=== PATIENT | male | born 1945 | race African-American/Black ===

== ENCOUNTER 2016-09-22 18:12 | Emergency (ER) | payer BC ==
[~2016-09-22] VITALS: Ht 175.3 cm; Wt 75.0 kg
[2016-09-22 19:49] LABS: PROTHROMBIN TIME 10.8 sec
[2016-09-22 19:50] LABS: BASOPHILS % 2.4 % (0.0-2.0); EOSINOPHILS % 6.6 % (0.0-5.0); HEMATOCRIT. 37.5 % (42.0-52.0); HEMOGLOBIN. 12.5 g/dL (14.0-18.0); LYMPHOCYTES % 17.3 % (20.0-50.0); MEAN CORPUSCULAR HEMOGLOBIN 30.7 pg (28.0-32.0); MEAN CORPUSCULAR VOLUME 92.1 fL (80.0-94.0); MEAN PLATELET VOLUME 10.7 fl (7.4-10.4); MONOCYTES % 10.1 % (2.0-8.0); NEUTROPHILS % 63.6 % (40.0-76.0); PLATELET 131 x1000/uL (130-400); RED BLOOD CELL COUNT 4.08 mill/uL (4.7-6.1); RED CELL DISTRIBUTION WIDTH 13.1 % (11.6-14.6)
[2016-09-22 20:00] LABS: CHLORIDE 108 mEq/L (98-107)
[2016-09-22 20:03] LABS: CARBON DIOXIDE 27 mEq/L (21-32)
[2016-09-22 20:10] LABS: TROPONIN I 0.17 ng/mL (0.00-0.04)
[2016-09-22] MEDS ORDERED: CLONIDINE 0.1MG TABLET PO ONE (20:15)
[2016-09-22 20:33] LABS: CLARITY URINE CLEAR (CLEAR); COLOR URINE YELLOW (YELLOW); GLUCOSE URINE NEGATIVE (NEGATIVE); KETONES URINE NEGATIVE (NEGATIVE); LEUKOCYTE ESTERASE URINE NEGATIVE (NEGATIVE); NITRITE URINE NEGATIVE (NEGATIVE); OCCULT BLOOD URINE 3+ (NEGATIVE); PROTEIN URINE TRACE (NEGATIVE); SPECIFIC GRAVITY URINE 1.007 (1.005-1.030); UROBILINOGEN URINE 0.2 E.U./dL (0.2-1.0)
[2016-09-22 22:30] VITALS: BP 151/94
== END 2016-09-22 22:55 | disposition home or self-care (01) ==
LOC: ER 18:12
DX: N30.91 Cystitis, unspecified with hematuria (principal); I10 Essential (primary) hypertension; N40.0 Benign prostatic hyperplasia without lower urinary tract symptoms; N28.9 Disorder of kidney and ureter, unspecified; Z87.891 Personal history of nicotine dependence
CPT/HCPCS: 36415; 74176; 80053; 81001; 83690; 84484; 85025; 85610; 87086; 99285

== ENCOUNTER 2018-07-29 11:37 | Emergency (ER) | payer BC ==
[~2018-07-29] VITALS: Ht 175.3 cm; Wt 80.0 kg
[2018-07-29] MEDS ORDERED: B12/1TAB MT (12:36)
[2018-07-29] MEDS ORDERED: LOSA50TA41 MT (12:40)
[2018-07-29] MEDS ORDERED: AMLO2.5T45 PO (12:40)
[2018-07-29] MEDS ORDERED: LABE200T28 MT (12:41)
[2018-07-29 13:03] LABS: BASOPHILS % 0.3 % (0.0-2.0); EOSINOPHILS % 5.3 % (0.0-5.0); HEMATOCRIT. 43.1 % (42.0-52.0); HEMOGLOBIN. 14.6 g/dL (14.0-18.0); KETONES URINE NEGATIVE (NEGATIVE); LEUKOCYTE ESTERASE URINE 1+ (NEGATIVE); LYMPHOCYTES % 15.2 % (20.0-50.0); MEAN CORPUSCULAR HEMOGLOBIN 31.9 pg (28.0-32.0); MEAN CORPUSCULAR VOLUME 94.3 fL (80.0-94.0); MEAN PLATELET VOLUME 9.8 fl (7.4-10.4); MONOCYTES % 6.7 % (2.0-8.0); NEUTROPHILS % 72.5 % (40.0-76.0); NITRITE URINE NEGATIVE (NEGATIVE); OCCULT BLOOD URINE 3+ (NEGATIVE); PH URINE 6.5 (4.5-8.0); PLATELET 183 x1000/uL (130-400); PROTEIN URINE 3+ (NEGATIVE); RED BLOOD CELL COUNT 4.57 mill/uL (4.7-6.1); RED CELL DISTRIBUTION WIDTH 12.9 % (11.6-14.6); SPECIFIC GRAVITY URINE 1.009 (1.005-1.030); UROBILINOGEN URINE 0.2 E.U./dL (0.2-1.0)
[2018-07-29 13:04] LABS: CLARITY URINE CLOUDY (CLEAR); COLOR URINE BLOODY (YELLOW)
[2018-07-29 13:13] LABS: PARTIAL THROMBOPLASTIN TIME 24.3 sec (23.4-31.0); PROTHROMBIN TIME 10.3 sec (9.6-11.0)
[2018-07-29] MEDS ORDERED: CLONIDINE 0.2MG TABLET PO ONE (14:45)
[2018-07-29] MEDS ORDERED: FUROSEMIDE 20MG/2ML VIAL IVP ONE (14:45)
[2018-07-29] MEDS ORDERED: SODIUM CHLORIDE 0.9% 1,000 ML IV ONE (14:45)
[2018-07-29 18:10] VITALS: BP 115/77
== END 2018-07-29 18:26 | disposition home or self-care (01) ==
LOC: ER 13:18
DX: R31.0 Gross hematuria (principal); I10 Essential (primary) hypertension; N28.9 Disorder of kidney and ureter, unspecified; Z87.442 Personal history of urinary calculi; Z85.9 Personal history of malignant neoplasm, unspecified; Z79.899 Other long term (current) drug therapy
CPT/HCPCS: 36415; 80048; 81003; 85025; 85610; 85730; 93005; 96361; 96374; 99283; J1940; J7030

== ENCOUNTER 2019-02-27 18:05 | Emergency (ER) | payer BC ==
[~2019-02-27] VITALS: Ht 175.3 cm; Wt 61.2 kg
[~2019-02-27 18:05] MED LIST: AMLO2.5T45 PO; B12/1TAB MT; LABE200T28 MT; LOSA50TA41 MT
[2019-02-27 18:12] VITALS: BP 184/106
== END 2019-02-27 19:46 | disposition left against medical advice (07) ==
LOC: ER 18:05
DX: R10.9 Unspecified abdominal pain (principal); R31.9 Hematuria, unspecified; I10 Essential (primary) hypertension; Z53.21 Procedure and treatment not carried out due to patient leaving prior to being seen by health care provider

== ENCOUNTER 2019-02-28 05:49 | Emergency (ER) | payer BC ==
[~2019-02-28] VITALS: Ht 175.3 cm; Wt 62.0 kg
[2019-02-28 08:02] LABS: CLARITY URINE CLEAR (CLEAR); COLOR URINE YELLOW (YELLOW); KETONES URINE NEGATIVE (NEGATIVE); LEUKOCYTE ESTERASE URINE NEGATIVE (NEGATIVE); NITRITE URINE NEGATIVE (NEGATIVE); OCCULT BLOOD URINE 1+ (NEGATIVE); PH URINE 6.5 (4.5-8.0); PROTEIN URINE 1+ (NEGATIVE); SPECIFIC GRAVITY URINE 1.008 (1.005-1.030); UROBILINOGEN URINE 0.2 E.U./dL (0.2-1.0)
[2019-02-28] MEDS ORDERED: ONDANSETRON HCL 4MG/2ML INJ IV STA (08:16)
[2019-02-28] MEDS ORDERED: SODIUM CHLORIDE 0.9% 1,000 ML IV ONE (08:16)
[2019-02-28] MEDS ORDERED: HYDROCODONE/ACETAMINOPHEN 5/325MG TABLET PO ONE (08:30)
[2019-02-28] MEDS ORDERED: HYDRALAZINE HCL 10MG TABLET PO ONE (08:30)
[2019-02-28 08:50] LABS: HEMATOCRIT. 38.5 % (42.0-52.0); MEAN CORPUSCULAR HEMOGLOBIN 31.6 pg (28.0-32.0); MEAN CORPUSCULAR VOLUME 93.3 fL (80.0-94.0); MEAN PLATELET VOLUME 10.5 fl (7.4-10.4); PLATELET 169 x1000/uL (130-400); RED BLOOD CELL COUNT 4.12 mill/uL (4.7-6.1); RED CELL DISTRIBUTION WIDTH 12.6 % (11.6-14.6)
[2019-02-28 08:53] LABS: CHLORIDE 105 mEq/L (98-107)
[2019-02-28 08:55] LABS: PROTHROMBIN TIME 10.3 sec (9.6-11.0)
[2019-02-28 10:16] LABS: PLATELET ESTIMATE NORMAL
[2019-02-28 10:53] VITALS: BP 149/85
== END 2019-02-28 10:55 | disposition home or self-care (01) ==
LOC: ER 05:49
DX: N20.0 Calculus of kidney (principal); R31.0 Gross hematuria; I12.9 Hypertensive chronic kidney disease with stage 1 through stage 4 chronic kidney disease, or unspecified chronic kidney disease; N18.9 Chronic kidney disease, unspecified
CPT/HCPCS: 36415; 74176; 80053; 81003; 85025; 85610; 96374; 99284; J2405; J7030

== ENCOUNTER 2019-10-02 09:20 | Inpatient (IN) | payer BC ==
[~2019-10-02] VITALS: Ht 175.3 cm; Wt 49.2 kg
[2019-10-02] MEDS ORDERED: SODIUM CHLORIDE 0.9% 1,000 ML IV ONE (10:06)
[2019-10-02] MEDS ORDERED: KETOROLAC 15MG/ML VIAL IV ONE (10:15)
[2019-10-02 10:40] LABS: HEMATOCRIT. 33.4 % (42.0-52.0); MEAN CORPUSCULAR HEMOGLOBIN 28.6 pg (28.0-32.0); MEAN CORPUSCULAR VOLUME 86.9 fL (80.0-94.0); MEAN PLATELET VOLUME 7.9 fl (7.4-10.4); PLATELET 444 x1000/uL (130-400); RED BLOOD CELL COUNT 3.84 mill/uL (4.7-6.1)
[2019-10-02 10:42] LABS: CHLORIDE 103 mEq/L (98-107)
[2019-10-02 11:45] LABS: PLATELET ESTIMATE SLIGHTLY INCREASED
[2019-10-02] MEDS ORDERED: ASPIRIN 81MG TABLET PO ONE (12:00)
[2019-10-02] MEDS ORDERED: CLONIDINE 0.2MG TABLET PO ONE (12:45)
[2019-10-02 12:48] LABS: CLARITY URINE CLOUDY (CLEAR); COLOR URINE YELLOW (YELLOW); KETONES URINE NEGATIVE (NEGATIVE); LEUKOCYTE ESTERASE URINE 3+ (NEGATIVE); NITRITE URINE NEGATIVE (NEGATIVE); OCCULT BLOOD URINE 3+ (NEGATIVE); PH URINE 5.5 (4.5-8.0); PROTEIN URINE 2+ (NEGATIVE); SPECIFIC GRAVITY URINE 1.013 (1.005-1.030); UROBILINOGEN URINE 0.2 E.U./dL (0.2-1.0)
[2019-10-02] MEDS ORDERED: HYDRALAZINE 20MG/ML VIAL IV NR (14:00)
[2019-10-02] MEDS ORDERED: CEFTRIAXONE 1 G PREMIX 50 ML IV SCH (16:15)
[2019-10-02] MEDS: HYDRALAZINE 20MG/ML VIAL IV PRN (16:23)
[2019-10-02 16:56] LABS: CREATINE KINASE MB FRACTION 3.7 ng/mL (0.5-3.6)
[2019-10-03] VITALS: BP 143/88
[2019-10-03] MEDS ORDERED: DOXA4TAB3 PO (01:22)
[2019-10-03] MEDS ORDERED: CLON1PAT11 SUBCUT (01:22)
[2019-10-03] MEDS ORDERED: MIRT7.5T11 PO (01:22)
[2019-10-03] MEDS ORDERED: DOXY100T2 PO (01:22)
[2019-10-03] MEDS ORDERED: AMLO5TAB88 PO (01:22)
[2019-10-03 04:00] VITALS: BP 140/89
[2019-10-03 08:00] VITALS: BP 150/96
[2019-10-03] MEDS: HYDROCODONE/ACETAMINOPHEN 5/325MG TABLET PO PRN ×2 (10:39→20:32)
[2019-10-03] MEDS ORDERED: IPRATROPIUM/ALBUTEROL 0.5-3(2.5)MG/3ML NEB HHN PRN (11:45)
[2019-10-03] MEDS ORDERED: BISACODYL 10MG SUPP PR PRN (11:45)
[2019-10-03] MEDS ORDERED: LORAZEPAM 2MG/ML CPJ IV PRN (11:45)
[2019-10-03] MEDS ORDERED: ACETAMINOPHEN 325MG TABLET PO PRN (11:45)
[2019-10-03] MEDS ORDERED: DIPHENHYDRAMINE 50MG/ML VIAL IV PRN (11:45)
[2019-10-03] MEDS ORDERED: ACETAMINOPHEN 650MG SUPP PR PRN (11:45)
[2019-10-03 11:54] LABS: *AMPHETAMINES SCREEN URINE NEGATIVE (NEGATIVE); *BENZODIAZEPINES SCREEN URINE NEGATIVE (NEGATIVE); *COCAINE SCREEN URINE NEGATIVE (NEGATIVE); METHADONE URINE SCREEN NEGATIVE (NEGATIVE); OPIATES URINE SCREEN NEGATIVE (NEGATIVE)
[2019-10-03 12:00] VITALS: BP 147/92
[2019-10-03 12:01] LABS: PHENCYCLIDINE URINE SCREEN NEGATIVE (NEGATIVE)
[2019-10-03 12:02] LABS: *BARBITURATES SCREEN URINE NEGATIVE (NEGATIVE); CANNABINOID URINE SCREEN NEGATIVE (NEGATIVE)
[2019-10-03 12:11] LABS: HEMATOCRIT. 31.7 % (42.0-52.0); HEMOGLOBIN. 10.2 g/dL (14.0-18.0); MEAN CORPUSCULAR HEMOGLOBIN 28.1 pg (28.0-32.0); MEAN CORPUSCULAR VOLUME 86.9 fL (80.0-94.0); PLATELET 478 x1000/uL (130-400); RED BLOOD CELL COUNT 3.65 mill/uL (4.7-6.1); RED CELL DISTRIBUTION WIDTH 13.5 % (11.6-14.6)
[2019-10-03 12:24] LABS: INR 1.2; PROTHROMBIN TIME 12.7 sec (9.6-11.0)
[2019-10-03 12:48] LABS: CREATINE KINASE MB FRACTION 3.8 ng/mL (0.5-3.6)
[2019-10-03 13:42] LABS: PLATELET ESTIMATE SLIGHTLY INCREASED
[2019-10-03] MEDS: AMLODIPINE 2.5MG TABLET PO SCH ×2 (14:29→20:28)
[2019-10-03] MEDS: SODIUM CHLORIDE 0.45% 1,000 ML IV SCH (14:29)
[2019-10-03] MEDS ORDERED: PAMIDRONATE DISODIUM 60 MG in SODIUM CHLORIDE 0.9% 1,000 ML IV SCH (15:00)
[2019-10-03 16:00] VITALS: BP 149/77
[2019-10-03] MEDS ORDERED: CEFTRIAXONE 1,000 MG in DEXTROSE 5% WATER 50 ML IV SCH (16:00)
[2019-10-03] MEDS: CEFTRIAXONE 1,000 MG in DEXTROSE 5% WATER 50 ML IV SCH (16:47)
[2019-10-03 20:02] VITALS: BP 157/97
[2019-10-03 20:47] LABS: CREATINE KINASE MB FRACTION 3.8 ng/mL (0.5-3.6)
[2019-10-04] VITALS: BP 123/84
[2019-10-04 04:06] VITALS: BP 129/89
[2019-10-04 08:00] VITALS: BP 113/72
[2019-10-04 08:24] LABS: HEMATOCRIT 29.2 % (42.0-52.0); HEMOGLOBIN 9.6 g/dL (14.0-18.0); MEAN CORPUSCULAR HEMOGLOBIN 28.7 pg (28.0-32.0); MEAN CORPUSCULAR VOLUME 87.1 fL (80.0-94.0); PLATELET 421 x1000/uL (130-400); RED BLOOD CELL COUNT 3.36 mill/uL (4.7-6.1); RED CELL DISTRIBUTION WIDTH 13.8 % (11.6-14.6)
[2019-10-04] MEDS: AMLODIPINE 2.5MG TABLET PO SCH ×2 (10:15→20:28)
[2019-10-04 12:00] VITALS: BP 142/90
[2019-10-04] MEDS ORDERED: IOHEXOL-300 100 ML BOTTLE ONE (13:33)
[2019-10-04] MEDS: SODIUM CHLORIDE 0.45% 1,000 ML IV SCH (14:17)
[2019-10-04] MEDS: CEFTRIAXONE 1,000 MG in DEXTROSE 5% WATER 50 ML IV SCH (15:57)
[2019-10-04 16:00] VITALS: BP 145/92
[2019-10-04 20:00] VITALS: BP 161/98
[2019-10-05] VITALS: BP 157/98
[2019-10-05 04:00] VITALS: BP 167/109
[2019-10-05] MEDS: SODIUM CHLORIDE 0.45% 1,000 ML IV SCH ×2 (04:03→19:51)
[2019-10-05] MEDS: HYDRALAZINE 20MG/ML VIAL IV PRN (05:39)
[2019-10-05 08:02] VITALS: BP 127/83
[2019-10-05] MEDS: AMLODIPINE 2.5MG TABLET PO SCH ×2 (08:56→21:02)
[2019-10-05 09:10] LABS: IMMUNOGLOBULIN A 190 mg/dL (61-437); IMMUNOGLOBULIN G 1652 mg/dL (603-1613); IMMUNOGLOBULIN M 20 mg/dL (15-143)
[2019-10-05 12:02] VITALS: BP 131/82
[2019-10-05 16:02] VITALS: BP 149/90
[2019-10-05] MEDS: CEFTRIAXONE 1,000 MG in DEXTROSE 5% WATER 50 ML IV SCH (16:04)
[2019-10-05 16:10] LABS: HEMATOCRIT. 27.2 % (42.0-52.0); HEMOGLOBIN. 8.9 g/dL (14.0-18.0); MEAN CORPUSCULAR HEMOGLOBIN 28.7 pg (28.0-32.0); MEAN CORPUSCULAR VOLUME 87.5 fL (80.0-94.0); MEAN PLATELET VOLUME 8.2 fl (7.4-10.4); PLATELET 347 x1000/uL (130-400); RED BLOOD CELL COUNT 3.11 mill/uL (4.7-6.1)
[2019-10-05 16:13] LABS: CHLORIDE 101 mEq/L (98-107)
[2019-10-05 17:01] LABS: PLATELET ESTIMATE NORMAL
[2019-10-05 20:00] VITALS: BP 154/97
[2019-10-06] VITALS (9 sets, daily range): BP systolic 109–165; BP diastolic 68–107
[2019-10-06] MEDS: SODIUM CHLORIDE 0.45% 1,000 ML IV SCH ×2 (06:13→20:24)
[2019-10-06] MEDS: AMLODIPINE 2.5MG TABLET PO SCH ×2 (08:34→20:28)
[2019-10-06] MEDS: CEFTRIAXONE 1,000 MG in DEXTROSE 5% WATER 50 ML IV SCH (15:32)
[2019-10-06] MEDS: HYDRALAZINE 20MG/ML VIAL IV PRN (16:10)
[2019-10-07] VITALS: BP 160/97
[2019-10-07] MEDS: HYDRALAZINE 20MG/ML VIAL IV PRN (00:40)
[2019-10-07 04:00] VITALS: BP 121/80
[2019-10-07 05:10] LABS: A/G RATIO 0.7 (0.7-1.7); ALBUMIN 2.9 g/dL (2.9-4.4); ALPHA-1-GLOBULIN 0.4 g/dL (0.0-0.4); GAMMA GLOBULINS 1.8 g/dL (0.4-1.8); GLOBULIN TOTAL 4.1 g/dL (2.2-3.9); M-SPIKE Not Observed g/dL (Not Observed)
[2019-10-07 06:18] LABS: CHLORIDE 106 mEq/L (98-107)
[2019-10-07 06:47] LABS: HEMATOCRIT. 43.3 % (42.0-52.0); HEMOGLOBIN. 13.7 g/dL (14.0-18.0); MEAN CORPUSCULAR HEMOGLOBIN 28.5 pg (28.0-32.0); MEAN CORPUSCULAR VOLUME 90.1 fL (80.0-94.0); MEAN PLATELET VOLUME 8.8 fl (7.4-10.4); PLATELET 251 x1000/uL (130-400); RED CELL DISTRIBUTION WIDTH 14.6 % (11.6-14.6)
[2019-10-07 08:00] VITALS: BP 153/100
[2019-10-07] MEDS: AMLODIPINE 2.5MG TABLET PO SCH (09:13)
[2019-10-07] MEDS: SODIUM CHLORIDE 0.45% 1,000 ML IV SCH (09:13)
[2019-10-07 12:00] VITALS: BP 138/89
[2019-10-07] MEDS: HYDROCODONE/ACETAMINOPHEN 5/325MG TABLET PO PRN (12:59)
[2019-10-07 14:30] LABS: PLATELET ESTIMATE NORMAL
[2019-10-07] MEDS: CEFTRIAXONE 1,000 MG in DEXTROSE 5% WATER 50 ML IV SCH (15:08)
[2019-10-07 16:00] VITALS: BP 153/98
[2019-10-07] MEDS: FUROSEMIDE 20MG/2ML VIAL IV SCH (16:44)
[2019-10-07] MEDS: SODIUM CHL 0.45% + KCL 20MEQ/L 1,000 ML IV SCH (16:48)
[2019-10-07 20:00] VITALS: BP 140/92
[2019-10-07] MEDS: AMLODIPINE 5MG TABLET PO SCH (20:47)
[2019-10-07] MEDS: METOPROLOL TARTRATE 25MG TABLET PO SCH (20:47)
[2019-10-08] VITALS: BP 164/98
[2019-10-08 04:00] VITALS: BP 138/91
[2019-10-08] MEDS: SODIUM CHL 0.45% + KCL 20MEQ/L 1,000 ML IV SCH ×3 (04:08→17:53)
[2019-10-08 06:38] LABS: CHLORIDE 106 mEq/L (98-107)
[2019-10-08 07:00] LABS: PHOSPHORUS 3.5 mg/dL (2.5-4.9)
[2019-10-08 07:17] LABS: HEMATOCRIT. 30.6 % (42.0-52.0); HEMOGLOBIN. 10.1 g/dL (14.0-18.0); MEAN CORPUSCULAR HEMOGLOBIN 28.4 pg (28.0-32.0); MEAN CORPUSCULAR VOLUME 85.9 fL (80.0-94.0); MEAN PLATELET VOLUME 8.9 fl (7.4-10.4); PLATELET 378 x1000/uL (130-400); RED BLOOD CELL COUNT 3.57 mill/uL (4.7-6.1)
[2019-10-08 08:00] VITALS: BP 150/97
[2019-10-08] MEDS: FUROSEMIDE 20MG/2ML VIAL IV SCH ×2 (09:09→17:52)
[2019-10-08] MEDS: AMLODIPINE 5MG TABLET PO SCH ×2 (09:09→20:28)
[2019-10-08] MEDS: METOPROLOL TARTRATE 25MG TABLET PO SCH ×2 (09:10→20:28)
[2019-10-08 12:00] VITALS: BP 157/98
[2019-10-08 12:24] LABS: PLATELET ESTIMATE NORMAL
[2019-10-08] MEDS: HYDRALAZINE 20MG/ML VIAL IV PRN (13:24)
[2019-10-08] MEDS ORDERED: HYDROCODONE/ACETAMINOPHEN 5/325MG TABLET PO PRN (14:30)
[2019-10-08] MEDS ORDERED: CLONIDINE HCL 0.2MG/24HR PATCH TD SCH (15:00)
[2019-10-08] MEDS: CALCITONIN,SALMON, 3.7 ML NASAL SPRAY ONENSTRL SCH (15:34)
[2019-10-08 16:00] VITALS: BP 126/76
[2019-10-08 20:00] VITALS: BP 149/90
[2019-10-09] VITALS (8 sets, daily range): BP systolic 89–156; BP diastolic 38–96
[2019-10-09] MEDS: SODIUM CHL 0.45% + KCL 20MEQ/L 1,000 ML IV SCH ×4 (04:24→23:26)
[2019-10-09 07:08] LABS: HEMATOCRIT. 31.2 % (42.0-52.0); HEMOGLOBIN. 10.4 g/dL (14.0-18.0); MEAN CORPUSCULAR HEMOGLOBIN 28.6 pg (28.0-32.0); MEAN CORPUSCULAR VOLUME 86.2 fL (80.0-94.0); MEAN PLATELET VOLUME 8.1 fl (7.4-10.4); PLATELET 365 x1000/uL (130-400); RED BLOOD CELL COUNT 3.62 mill/uL (4.7-6.1); RED CELL DISTRIBUTION WIDTH 14.1 % (11.6-14.6)
[2019-10-09 07:57] LABS: PHOSPHORUS 3.7 mg/dL (2.5-4.9)
[2019-10-09] MEDS: AMLODIPINE 5MG TABLET PO SCH ×2 (09:10→20:58)
[2019-10-09] MEDS: METOPROLOL TARTRATE 25MG TABLET PO SCH ×2 (09:10→20:59)
[2019-10-09] MEDS: FUROSEMIDE 20MG/2ML VIAL IV SCH ×2 (09:11→17:30)
[2019-10-09] MEDS: CALCITONIN,SALMON, 3.7 ML NASAL SPRAY ONENSTRL SCH (09:12)
[2019-10-09 10:39] LABS: PLATELET ESTIMATE NORMAL
[2019-10-10] VITALS: BP_SYST 160; BP_DIAS 96; BP_DIAS 97
[2019-10-10 04:29] VITALS: BP 160/97
[2019-10-10] MEDS: SODIUM CHL 0.45% + KCL 20MEQ/L 1,000 ML IV SCH ×4 (06:46→23:48)
[2019-10-10 08:11] LABS: HEMATOCRIT 30.6 % (42.0-52.0); HEMOGLOBIN 10.1 g/dL (14.0-18.0); MEAN CORPUSCULAR HEMOGLOBIN 28.5 pg (28.0-32.0); MEAN CORPUSCULAR VOLUME 86.8 fL (80.0-94.0); RED BLOOD CELL COUNT 3.53 mill/uL (4.7-6.1); RED CELL DISTRIBUTION WIDTH 14.3 % (11.6-14.6)
[2019-10-10] MEDS: AMLODIPINE 5MG TABLET PO SCH ×2 (08:57→20:08)
[2019-10-10] MEDS: FUROSEMIDE 20MG/2ML VIAL IV SCH ×2 (08:58→17:00)
[2019-10-10] MEDS: METOPROLOL TARTRATE 25MG TABLET PO SCH ×2 (08:58→20:08)
[2019-10-10] MEDS: CALCITONIN,SALMON, 3.7 ML NASAL SPRAY ONENSTRL SCH (08:59)
[2019-10-10 09:01] VITALS: BP 139/87
[2019-10-10 11:24] VITALS: BP 139/90
[2019-10-10 14:00] LABS: PLATELET 309 x1000/uL (130-400)
[2019-10-10 17:01] VITALS: BP 114/75
[2019-10-10 20:00] VITALS: BP 110/60
[2019-10-11] VITALS: BP 136/88
[2019-10-11 04:00] VITALS: BP 128/80
[2019-10-11 06:23] LABS: HEMOGLOBIN. 8.4 g/dL (14.0-18.0); MEAN CORPUSCULAR HEMOGLOBIN 28.8 pg (28.0-32.0); MEAN CORPUSCULAR VOLUME 88.6 fL (80.0-94.0); MEAN PLATELET VOLUME 8.6 fl (7.4-10.4); PLATELET 273 x1000/uL (130-400); RED BLOOD CELL COUNT 2.93 mill/uL (4.7-6.1); RED CELL DISTRIBUTION WIDTH 14.8 % (11.6-14.6)
[2019-10-11 08:46] VITALS: BP 162/92
[2019-10-11] MEDS: AMLODIPINE 5MG TABLET PO SCH ×2 (09:15→20:37)
[2019-10-11] MEDS: CALCITONIN,SALMON, 3.7 ML NASAL SPRAY ONENSTRL SCH (09:16)
[2019-10-11] MEDS: METOPROLOL TARTRATE 25MG TABLET PO SCH ×2 (09:16→20:38)
[2019-10-11] MEDS: FUROSEMIDE 20MG/2ML VIAL IV SCH ×2 (09:26→18:33)
[2019-10-11 10:03] LABS: PHOSPHORUS 2.9 mg/dL (2.5-4.9)
[2019-10-11 11:19] LABS: PLATELET ESTIMATE NORMAL
[2019-10-11 11:59] VITALS: BP 145/96
[2019-10-11 12:08] LABS: HEMATOCRIT 29.5 % (42.0-52.0); HEMOGLOBIN 9.7 g/dL (14.0-18.0)
[2019-10-11 16:14] VITALS: BP 126/84
[2019-10-11] MEDS: SODIUM CHL 0.45% + KCL 20MEQ/L 1,000 ML IV SCH (18:32)
[2019-10-11 20:00] VITALS: BP 128/80
[2019-10-12] VITALS: BP 132/75
[2019-10-12] MEDS: SODIUM CHL 0.45% + KCL 20MEQ/L 1,000 ML IV SCH ×3 (00:22→16:10)
[2019-10-12 04:00] VITALS: BP 139/92
[2019-10-12 07:29] LABS: HEMATOCRIT. 28.9 % (42.0-52.0); HEMOGLOBIN. 9.6 g/dL (14.0-18.0); MEAN CORPUSCULAR VOLUME 87.7 fL (80.0-94.0); MEAN PLATELET VOLUME 8.3 fl (7.4-10.4); PLATELET 329 x1000/uL (130-400); RED CELL DISTRIBUTION WIDTH 14.8 % (11.6-14.6)
[2019-10-12] MEDS: FUROSEMIDE 20MG/2ML VIAL IV SCH ×2 (07:35→16:24)
[2019-10-12 07:57] LABS: PHOSPHORUS 3.6 mg/dL (2.5-4.9)
[2019-10-12 08:00] VITALS: BP 139/85
[2019-10-12] MEDS: METOPROLOL TARTRATE 25MG TABLET PO SCH (09:31)
[2019-10-12] MEDS: CALCITONIN,SALMON, 3.7 ML NASAL SPRAY ONENSTRL SCH (09:31)
[2019-10-12] MEDS: AMLODIPINE 5MG TABLET PO SCH (09:31)
[2019-10-12 12:00] VITALS: BP 105/73
[2019-10-12 12:07] LABS: PLATELET ESTIMATE NORMAL
[2019-10-12 16:00] VITALS: BP 132/88
[2019-10-12 18:55] VITALS: BP 132/88
== END 2019-10-12 19:50 | disposition short-term general hospital (02) | DRG 682 ==
LOC: ER 09:20 → 6WST 13:27 → SUPCPDRO 13:31 → EDBEDREQTM 13:32 → EDBEDREQ 13:32 → ENRESERV 22:25
PROVIDERS: ADMIT Internal Medicine; ATTEND Internal Medicine
DX: N17.9 Acute kidney failure, unspecified (principal); I50.33 Acute on chronic diastolic (congestive) heart failure; I13.0 Hypertensive heart and chronic kidney disease with heart failure and stage 1 through stage 4 chronic kidney disease, or unspecified chronic kidney disease; N39.0 Urinary tract infection, site not specified; E87.1 Hypo-osmolality and hyponatremia; D68.69 Other thrombophilia; N18.4 Chronic kidney disease, stage 4 (severe); M85.80 Other specified disorders of bone density and structure, unspecified site; D72.828 Other elevated white blood cell count; E78.5 Hyperlipidemia, unspecified; E83.52 Hypercalcemia; D47.3 Essential (hemorrhagic) thrombocythemia; R26.89 Other abnormalities of gait and mobility; K80.20 Calculus of gallbladder without cholecystitis without obstruction; K11.7 Disturbances of salivary secretion; N40.0 Benign prostatic hyperplasia without lower urinary tract symptoms; M54.5 Low back pain; Z20.828 Contact with and (suspected) exposure to other viral communicable diseases; I71.2 Thoracic aortic aneurysm, without rupture; W18.39XA Other fall on same level, initial encounter; J43.2 Centrilobular emphysema; D64.9 Anemia, unspecified; Z85.819 Personal history of malignant neoplasm of unspecified site of lip, oral cavity, and pharynx; Z82.49 Family history of ischemic heart disease and other diseases of the circulatory system; Z85.01 Personal history of malignant neoplasm of esophagus; Z85.89 Personal history of malignant neoplasm of other organs and systems; Z79.899 Other long term (current) drug therapy; Z92.3 Personal history of irradiation; Z85.810 Personal history of malignant neoplasm of tongue; Z87.442 Personal history of urinary calculi; Z90.5 Acquired absence of kidney; Y93.89 Activity, other specified; Y92.89 Other specified places as the place of occurrence of the external cause; Y99.8 Other external cause status
CPT/HCPCS: 36415; 70490; 71045; 71250; 72070; 72100; 72131; 74177; 80048; 80053; 80305; 81003; 82105; 82270; 82330; 82378; 82550; 82553; 82784; 82962; 83615; 83735; 83880; 83970; 84100; 84153; 84155; 84165; 84484; 85014; 85018; 85025; 85027; 85044; 86334; 86850; 86900; 87635; 93005; 93306; 93970; 97162; 97530; 99285; J0360; J0696; J1885; J1940; J2430; J3480; J7030; J7040; J7060; Q9967; G0103